=== PATIENT | female | born 1965 | race Caucasian/White ===

== ENCOUNTER → 2016-12-22 22:50 | Emergency (ER) | payer OTHER ==
[2016-12-22 19:02] LABS: BASOPHILS 0.2 %; BASOPHILS ABSOLUTE 0.01 10/3/uL (0.0-0.16); EOSINOPHILS 1.6 %; EOSINOPHILS ABSOLUTE 0.09 10/3/uL (0.0-0.53); ER CBC TAT 0 Hrs 05 Mins; HEMATOCRIT 34.7 % (36.0-48.0); HEMOGLOBIN 11.4 g/dL (12.0-16.0); IMMATURE GRANULOCYTES 0.2 %; IMMATURE GRANULOCYTES ABSOLUTE 0.01 10/3/uL (0.0-0.11); LYMPHOCYTES 26.5 %; LYMPHOCYTES ABSOLUTE 1.51 10/3/uL (0.67-4.30); MEAN CORPUS HGB CONC 32.9 g/dL (32.0-36.0); MEAN CORPUSCULAR HEMOGLOB 30.5 pg (26.0-34.0); MEAN CORPUSCULAR VOLUME 92.8 fL (80-100); MEAN PLATELET VOLUME 9.8 fL (9.2-13.0); MONOCYTES 8.1 %; MONOCYTES ABSOLUTE 0.46 10/3/uL (0.21-1.20); NEUTROPHILS 63.4 %; NEUTROPHILS ABSOLUTE 3.62 10/3/uL (2.02-8.40); PLATELET COUNT 269 10/3/uL (150-400); RBC DISTRIBUTION WIDTH 12.9 % (12.0-16.0); RED CELL COUNT 3.74 10/6/uL (4.0-5.6); WHITE BLOOD CELLS 5.7 10/3/uL (4.5-10.5)
[2016-12-22 19:03] LABS: MANUAL DIFF NO %
[2016-12-22 19:10] LABS: PROTIME (NOT ORD) 13.2 SEC (12.0-14.5)
[2016-12-22 19:20] LABS: A/G RATIO 0.8 (0.7-1.9); ALBUMIN 3.8 G/DL (3.5-5.0); ALKALINE PHOSPHATASE 102 U/L (45-117); BUN (BLOOD UREA NITROGEN) 15 MG/DL (6-23); CALCIUM, SERUM 9.4 MG/DL (8.5-10.4); CHLORIDE, SERUM 108 MMOL/L (96-112); CO2 (CARBON DIOXIDE) 28 MMOL/L (24-34); CREATININE 0.86 MG/DL (0.55-1.02); GFR AFRICAN AMERICAN 90 ML/MIN (>=60); GFR NON AFRICAN AMERICAN 78 ML/MIN (>=60); GLOBULIN 4.5 G/DL (2.5-4.1); GLUCOSE, SERUM 83 MG/DL (60-99); POTASSIUM, SERUM 3.7 MMOL/L (3.5-5.3); SGOT(AST) 31 U/L (5-40); SGPT(ALT) 37 U/L (5-65); SODIUM, SERUM 144 MMOL/L (135-148); TOTAL BILIRUBIN 0.3 MG/DL (0-1.2); TOTAL PROTEIN 8.3 G/DL (6.0-8.5)
[~2016-12-22 22:50] MED LIST: ATV.5 PO; COMP10B PO; DORYX100 MG PO; DSS PO; LEVAQUIN750 MG PO; MOMUD PO; XARELTO20 MG PO; ZOFRAN ODT4 MG PO; [UNRECOGNIZED DRUG - OTHER] PO
== END | disposition home or self-care (01) ==
LOC: ER 22:50
PROVIDERS: Emergency Medicine
DX: I82.4Z1 Acute embolism and thrombosis of unspecified deep veins of right distal lower extremity (principal); C18.9 Malignant neoplasm of colon, unspecified
CPT/HCPCS: 80053; 85025; 85610; 93971; 99284; A9270-GY

== ENCOUNTER 2017-03-25 17:13 | Inpatient (IN) | payer OTHER ==
--- NOTE | ~2017-03-25 | DS ---
Discharge Summary [id number] [facility] [place]. [address] NAME: DEBRA BRAXTON : 63 STATUS : DIS IN PAT#: [id number] AGE: 51 ADM/REG DATE : 03/25/17 MR#: [id number] REPORT SERV DATE: 03/28/17 DICTATED BY: RIVAS CORTES DATE: 03/27/17 REPORT STATUS : Draft TRANSCRIBED BY: MODL DATE: 03/27/17 ADMISSION DATE: 03/25/2017 DISCHARGE DATE: 03/27/2017 DISCHARGE DIAGNOSES: 1. Fever post chemotherapy. 2. Stage IV colon cancer. 3. History of DVT. 4. Anxiety disorder. CONSULTANTS DURING THIS HOSPITALIZATION: Percy Nicholson M.D. of Hematology/Oncology. INVASIVE PROCEDURES DONE DURING THIS HOSPITALIZATION: None. BRIEF HISTORY OF PRESENT ILLNESS: The patient is a 51-year-old white female with an unfortunate diagnosis of colon cancer, received chemotherapy in the office, presented with high fevers and chills, so she was admitted. For detailed history and physical exam, please see note dictated by Dr. Pablo Hale on 03/25/2017. HOSPITAL COURSE: After being admitted to the hospital, this patient was given IV fluids, appropriate blood cultures were done, chest x-ray, urine cultures were done which all remained negative. Her procalcitonin level was slightly elevated at 4.5, her white count was 3.8, her hemoglobin and hematocrit remained stable. All cultures came back negative, so patient was switched to oral Levaquin. Dr. Nicholson recommended that she could be discharged, the patient is being discharged in stable condition. DISCHARGE DISPOSITION: Home. DISCHARGE ACTIVITY: As tolerated. DISCHARGE DIET: As tolerated. DISCHARGE MEDICATIONS: Levaquin 750 mg p.o. tablet daily, Colace 100 mg twice daily, Xarelto 20 mg once daily, lorazepam 0.4 mg p.o. every 4-6 hours p.r.n. for anxiety, Compazine 10 mg p.o. every 4-6 p.r.n. for nausea and vomiting, Zofran ODT 4 mg every 8 hours p.r.n. for nausea and vomiting, vitamin code raw iron 1 tablet daily, milk of magnesia 30 mL p.o. daily p.r.n. for constipation. DISCHARGE FOLLOWUP: With Dr. Marquess Nicholson as scheduled previously. More than 30-minutes spent planning this patient's discharge, reconciling medications, writing prescriptions, discussing hospital care, follow up with the patient and documenting this discharge. DICTATED BY: Rivas Cortes M.D. Discharge Summary [address] [place]. [address] NAME: DEBRA BRAXTON : 63 STATUS : DIS IN PAT#: [id number] AGE: 51 ADM/REG DATE : 03/25/17 MR#: [id number] REPORT SERV DATE: 03/28/17 DICTATED BY: RIVAS CORTES DATE: 03/27/17 REPORT STATUS : Draft TRANSCRIBED BY: MODAmanda DATE: 03/27/17 SV/MARY Rivas Cortes M.D. / [id number] CC: Darrell Alfonso Dr., III, M.D.
--- NOTE | ~2017-03-25 | HP ---
History And Physical [place] [address] [facility] [place]. [address] NAME: DEBRA BRAXTON : 63 STATUS : ADM IN [facility]#: [id number] AGE: 51 ADM/REG DATE : 03/25/17 MR#: [id number] REPORT SERV DATE: 03/26/17 DICTATED BY: JACOBY SORIA II ORLANDODEANNA DATE: 03/25/17 REPORT STATUS : Draft TRANSCRIBED BY: MODL DATE: 03/25/17 DATE OF ADMISSION: 03/25/2017 PRIMARY ONCOLOGIST: Percy Nicholson M.D. CHIEF COMPLAINT: Rigors, fever, and cough. HISTORY OF PRESENT ILLNESS: The patient is a 51-year-old female with a history of stage IV colon adenocarcinoma and DVT, on Xarelto, who presented to [facility] today from home after undergoing a chemotherapy treatment in clinic today during which she experienced fairly profound rigors according to Dr. Nicholson, though was afebrile at that time. She finished the treatment and was discharged home, but at home she noted that her temperature went up to 100.7 with continued rigors, so she called Dr. Nicholson and was subsequently asked for admission. She notes that she has had a worsening cough over the last few days, but denies any shortness of breath. She does not have any productive sputum. Denies any chest pain. She also denies any abdominal pain, nausea, vomiting, or diarrhea. She is actually somewhat constipated. Denies any dizziness or weakness. REVIEW OF SYSTEMS: A 10-point review of systems was otherwise negative except for HPI. PAST MEDICAL HISTORY: 1. Stage IV colon adenocarcinoma, followed by Dr. Nicholson, on chemotherapy. 2. History of DVT, on Xarelto. PAST SURGICAL HISTORY: Breast augmentation and partial colectomy. FAMILY HISTORY: Mother with colon adenocarcinoma and father with basal cell. SOCIAL HISTORY: The patient denies any history of alcohol, tobacco, or drug use. She is and lives with her . She is otherwise fairly active. HOME MEDICATIONS: Colace, doxycycline, Dulcolax, lidocaine topical, MD Artie mouthwash, Mucinex, oxycodone, Prilosec, Compazine, Xanax, and Xarelto. PHYSICAL EXAMINATION: VITAL SIGNS: Blood pressure 106/57, temperature 98.3, pulse 81, respirations 18, and O2 saturation 98% on room air. GENERAL: The patient is alert and oriented x3, in no acute distress. NECK: Supple and nontender. No lymphadenopathy or thyromegaly. HEENT: Moist mucous membranes. Pupils are equal, round, and reactive to light. Conjunctivae are clear. RESPIRATORY: Lungs show crackles in the left lower lobe, not cleared with deep inspiration. Otherwise, clear to auscultation. Nonlabored breathing. CARDIOVASCULAR: Regular rate and rhythm. No murmurs, rubs, or gallops. ABDOMEN: Soft, nontender, and nondistended. Normoactive bowel sounds. History And Physical [address] [address] NAME: DEBRA BRAXTON : 63 STATUS : ADM IN [facility]#: [id number] AGE: 51 ADM/REG DATE : 03/25/17 MR#: [id number] REPORT SERV DATE: 03/26/17 DICTATED BY: JACOBY SORIA II DATE: 03/25/17 REPORT STATUS : Draft TRANSCRIBED BY: MARY DATE: 03/25/17 EXTREMITIES: No cyanosis, clubbing, or edema. SKIN: No lesions, rashes, or wounds. NEURO: No focal deficits. LABORATORY DATA: Pending. ASSESSMENT AND PLAN: 1. The patient is a 51-year-old female with a fever reported at home of 100.7 with rigors and left lower lobe crackles and cough concerning for possible pneumonia. We will go ahead and start her on cefepime given her immunocompromised state due to chemotherapy. Cultures were drawn at the clinic, but we will check a chest x-ray and urinalysis. 2. Stage IV colon adenocarcinoma. Deferred to oncology. 3. History of deep venous thrombosis, on Xarelto. Continue Xarelto. The patient is full code. BONI/MARY Jacoby Soria II, MD / [id number] CC: MD MEGHANA Medina II, SUSAN
[2017-03-25] MEDS ORDERED: XARELTO20 MG PO (21:01)
[2017-03-25] MEDS ORDERED: DORYX100 MG PO (21:02)
[2017-03-25] MEDS ORDERED: ATV.5 PO (21:06)
[2017-03-25] MEDS ORDERED: COMP10B PO (21:08)
[2017-03-25] MEDS ORDERED: ZOFRAN ODT4 MG PO (21:09)
[2017-03-25] MEDS ORDERED: [UNRECOGNIZED DRUG - OTHER] PO (21:11)
[2017-03-25] MEDS ORDERED: DSS PO (21:12)
[2017-03-25] MEDS ORDERED: MOMUD PO (21:15)
[2017-03-25 22:45] LABS: MEAN CORPUS HGB CONC 33.7 g/dL (32.0-36.0); MEAN CORPUSCULAR HEMOGLOB 31.3 pg (26.0-34.0); MEAN PLATELET VOLUME 9.5 fL (9.2-13.0); RBC DISTRIBUTION WIDTH 14.8 % (12.0-16.0); RED CELL COUNT 4.15 10/6/uL (4.0-5.6)
[2017-03-25 22:47] LABS: HEMATOCRIT 38.6 % (36.0-48.0); MANUAL DIFF YES %; PLATELET COUNT 117 10/3/uL (150-400); WHITE BLOOD CELLS 3.4 10/3/uL (4.5-10.5)
[2017-03-25 23:05] LABS: A/G RATIO 0.9 (0.7-1.9); ALBUMIN 3.4 G/DL (3.5-5.0); BUN (BLOOD UREA NITROGEN) 12 MG/DL (6-23); CHLORIDE, SERUM 107 MMOL/L (96-112); CO2 (CARBON DIOXIDE) 24 MMOL/L (24-34); CREATININE 0.87 MG/DL (0.55-1.02); GFR AFRICAN AMERICAN 89 ML/MIN (>=60); GFR NON AFRICAN AMERICAN 77 ML/MIN (>=60); GLOBULIN 3.9 G/DL (2.5-4.1); POTASSIUM, SERUM 3.7 MMOL/L (3.5-5.3); SGOT(AST) 53 U/L (5-40); SGPT(ALT) 25 U/L (5-65); SODIUM, SERUM 139 MMOL/L (135-148); TOTAL PROTEIN 7.3 G/DL (6.0-8.5)
[2017-03-25 23:07] LABS: ALKALINE PHOSPHATASE 84 U/L (45-117); GLUCOSE, SERUM 181 MG/DL (60-99); TOTAL BILIRUBIN 1.2 MG/DL (0-1.2)
[2017-03-25 23:19] LABS: BAND NEUTROPHILS 14 %; LYMPHOCYTES 2 %; LYMPHOCYTES ABSOLUTE (CALC) 0.07 10/3/uL (0.67-4.30); MONOCYTES 2 %; MONOCYTES ABSOLUTE (CALC) 0.07 10/3/uL (0.21-1.20); NEUTROPHILS ABSOLUTE (CALC) 3.26 10/3/uL (2.02-8.40); PLATELET ESTIMATE SLT DEC (ADEQUATE); RBC MORPHOLOGY NORM (NORMAL); SEGMENTED NEUTROPHIL (0) 82 %; TOTAL NUCLEATED CELLS 100
[2017-03-26 00:23] LABS: PROCALCITONIN 4.48 ng/mL (<0.5)
[2017-03-26 03:34] LABS: ASCORBIC ACID (UR NOT ORDER) NEG (NEG); BILIRUBIN, URINE NEGATIVE (NEG); KETONE, URINE NEGATIVE (NEG); LEUKOCYTE ESTERASE(NOT OR NEG (NEG); WBC (NOT ORDERED) (RFLEX) 1 (0-5)
[2017-03-26 07:13] LABS: BASOPHILS 0 %; EOSINOPHILS 0 %; HEMATOCRIT 37.3 % (36.0-48.0); HEMOGLOBIN 12.8 g/dL (12.0-16.0); IMMATURE GRANULOCYTES 0.3 %; IMMATURE GRANULOCYTES ABSOLUTE 0.01 10/3/uL (0.0-0.11); LYMPHOCYTES 7.6 %; LYMPHOCYTES ABSOLUTE 0.29 10/3/uL (0.67-4.30); MEAN CORPUS HGB CONC 34.3 g/dL (32.0-36.0); MEAN CORPUSCULAR HEMOGLOB 32.2 pg (26.0-34.0); MEAN CORPUSCULAR VOLUME 93.7 fL (80-100); MEAN PLATELET VOLUME 10.3 fL (9.2-13.0); MONOCYTES 8.1 %; MONOCYTES ABSOLUTE 0.31 10/3/uL (0.21-1.20); NEUTROPHILS ABSOLUTE 3.22 10/3/uL (2.02-8.40); PLATELET COUNT 107 10/3/uL (150-400); RBC DISTRIBUTION WIDTH 14.7 % (12.0-16.0); RED CELL COUNT 3.98 10/6/uL (4.0-5.6); WHITE BLOOD CELLS 3.8 10/3/uL (4.5-10.5)
[2017-03-26 07:14] LABS: MANUAL DIFF NO %
[2017-03-27] MEDS ORDERED: LEVAQUIN750 MG PO (12:09)
== END 2017-03-27 14:29 | disposition home or self-care (01) | DRG 868 ==
LOC: 5SO 17:13
PROVIDERS: Internal Medicine
DX: A48.8 Other specified bacterial diseases (principal); C18.9 Malignant neoplasm of colon, unspecified; R50.2 Drug induced fever; T45.1X5A Adverse effect of antineoplastic and immunosuppressive drugs, initial encounter; Z86.718 Personal history of other venous thrombosis and embolism; Z79.899 Other long term (current) drug therapy; Z79.01 Long term (current) use of anticoagulants; Z90.49 Acquired absence of other specified parts of digestive tract; Z98.890 Other specified postprocedural states; Z80.0 Family history of malignant neoplasm of digestive organs
CPT/HCPCS: 71020; 80053; 81001; 83735; 84145; 85025; A9270-GY; J0692; J2405